=== PATIENT | female | born 1995 | race African-American/Black ===

== ENCOUNTER 2019-04-01 15:39 | Emergency (ER) | payer SELFPAY ==
[2019-04-01 16:18] LABS: APPEARANCE,URINE SLIGHTLY-CLOUDY; BILIRUBIN,URINE NEGATIVE (NEGATIVE); COLOR,URINE AMBER; GLUCOSE, URINE NEGATIVE (NEGATIVE); KETONES,URINE TRACE mg/dL (NEGATIVE); LEUKOCYTE ESTERASE,URINE NEGATIVE (NEGATIVE); NITRITE,URINE NEGATIVE (NEGATIVE); PROTEIN,URINE 30 mg/dL (NEGATIVE); URINE SPECIFIC GRAVITY 1.028
[2019-04-01 16:35] LABS: URINE AMPHETAMINES SCREEN NEGATIVE; URINE BARBITURATES SCREEN NEGATIVE; URINE BENZODIAZEPINES SCREEN NEGATIVE; URINE COCAINE SCREEN NEGATIVE; URINE MARIJUANA (THC) SCREEN NEGATIVE; URINE METHADONE SCREEN NEGATIVE; URINE PHENCYCLIDINE SCREEN NEGATIVE
[2019-04-01 17:06] LABS: ALANINE AMINOTRANSFERASE 18 U/L (9-52); ALBUMIN 4.4 g/dL (3.5-5.0); ALKALINE PHOSPHATASE 64 U/L (38-126); ANION GAP 10 (5-19); ASPARTATE AMINO TRANSFERASE 17 U/L (14-36); BILIRUBIN,DIRECT 0.3 mg/dL (0.0-0.4); BILIRUBIN,TOTAL 0.5 mg/dL (0.2-1.3); BLOOD UREA NITROGEN 10 mg/dL (7-20); CALCIUM 9.9 mg/dL (8.4-10.2); CARBON DIOXIDE 25 mmol/L (22-30); CHLORIDE 108 mmol/L (98-107); GLUCOSE 90 mg/dL (75-110); SODIUM 143.1 mmol/L (137-145); TOTAL PROTEIN 7.5 g/dL (6.3-8.2)
[2019-04-01 17:07] LABS: ACETAMINOPHEN < 10 ug/mL (10-30); ALCOHOL < 10 mg/dL (NONE DETECTED); SALICYLATE < 1.0 mg/dL (2.0-20.0)
--- NOTE | 2019-04-01 17:07 | ER Document Report ---
Addendum entered and electronically signed by RUPINDER BRADLEY MD 04/02/19 13:01: Discharge - Discharge Clinical Impression: suicidal comment Condition: Stable Disposition: HOME, SELF-CARE Additional Instructions: You have been evaluated both medical and behavioral health teams and have been deemed appropriate for discharge. You have identified wanting to get back on the bus to go back home to [place]. You are encouraged to use positive coping skills rather than making suicidal comments (which you identify as false stat ements) when angry. AT ANY TIME, IF YOUR SYMPTOMS CHANGE SIGNIFICANTLY OR WORSEN OR YOU DEVELOP NEW SYMPTOMS, RETURN TO THE EMERGENCY DEPARTMENT IMMEDIATELY FOR RE-EVALUATION. Original Note: ED Psych Disorder / Suicide <SHEYLA FERRER - Last Filed: 04/01/19 19:56> <KACIE CARBAJAL - Last Filed: 04/02/19 12:54> <RUPINDER BRADLEY - Last Filed: 04/02/19 13:00> - General Chief Complaint: Psych Problem Stated Complaint: PSYCH Time Seen by Provider: 04/01/19 16:14 Notes: Patient brought in by EMS for reportedly having suicidal thoughts. Patient was at the main gait to [place] and supposedly said that she wanted to kill herself. Patient says that she is visiting here from [place] and only knows 1 person here, a friend of hers. She thinks that may be someone saw her near the railing to a bridge and thought she might jump. Patient says she was merely taking pictures. She says that she knows someone named Soto here in town. Has not been sick in any way recently. No history of any medical problems. Specifically, patient says she has no history of any mental illnesses. On no medications. (SHEYLA FERRER) Past Medical History - Social History Smoking Status: Unknown if Ever Smoked Family History: Reviewed & Not Pertinent Patient has suicidal ideation: No Patient has homicidal ideation: No <SHEYLA FERRER - Last Filed: 04/01/19 19:56> Review of Systems <SHEYLA FERRER - Last Filed: 04/01/19 19:56> - Review of Systems Notes: CONSTITUTIONAL : Denies fever. CARDIOVASCULAR: Denies chest pain. RESPIRATORY: Denies cough, chest congestion, or shortness of breath. GASTROINTESTINAL: Denies abdominal pain or nausea, vomiting, or diarrhea. GENITOURINARY: Denies difficulty or painful urinating, urinary frequency, blood in urine. (SHEYLA FERRER) Physical Exam <SHEYLA FERRER - Last Filed: 04/01/19 19:56> - Vital signs Vitals: Temp Pulse Resp BP Pulse Ox 97.9 F 88 16 126/80 H 97 04/02/19 05:00 04/02/19 05:00 04/02/19 05:00 04/02/19 05:00 04/02/19 05:00 Notes: PHYSICAL EXAMINATION: GENERAL: Well-appearing, no acute distress. HEAD: Atraumatic, normocephalic. NECK: Normal range of motion, supple. LUNGS: Breath sounds clear and equal bilaterally. HEART: Regular rate and rhythm without murmurs heard. ABDOMEN: Soft, nontender. No guarding or rebound or masses felt. (SHEYLA FERRER) Course - Laboratory Result Diagrams: 04/01/19 17:17 04/01/19 16:30 <SHEYLA FERRER - Last Filed: 04/01/19 19:56> - Laboratory Result Diagrams: 04/01/19 17:17 04/01/19 16:30 <KACIE CARBAJAL - Last Filed: 04/02/19 12:54> - Laboratory Result Diagrams: 04/01/19 17:17 04/01/19 16:30 <RUPINDER BRADLEY - Last Filed: 04/02/19 13:00> - Re-evaluation Re-evalutation: 04/01/19 17:02 Patient will be evaluated by mental health. (SHEYLA FERRER) - Vital Signs Vital signs: Temp Pulse Resp BP Pulse Ox 97.9 F 88 16 126/80 H 97 04/02/19 05:00 04/02/19 05:00 04/02/19 05:00 04/02/19 05:00 04/02/19 05:00 - Laboratory Laboratory results interpreted by ut: 04/01/19 04/01/19 15:45 16:30 Chloride 108 H Urine Protein 30 H Urine Ketones TRACE H Urine Blood SMALL H Urine Urobilinogen 2.0 H Urine Ascorbic Acid 40 H Salicylates < 1.0 L Acetaminophen < 10 L Discharge <SHEYLA FERRER - Last Filed: 04/01/19 19:56> <KACIE CARBAJAL - Last Filed: 04/02/19 12:54> <RUPINDER BRADLEY - Last Filed: 04/02/19 13:00> - Discharge Clinical Impression: suicidal comment Condition: Stable Disposition: HOME, SELF-CARE Additional Instructions: You have been evaluated both medical and behavioral health teams and have been deemed appropriate for discharge. You have identified wanting to get back on the bus to go back home to [place]. You are encouraged to use positive coping skills rather than making suicidal comments (which you identify as false stateme nts) when angry. AT ANY TIME, IF YOUR SYMPTOMS CHANGE SIGNIFICANTLY OR WORSEN OR YOU DEVELOP NEW SYMPTOMS, RETURN TO THE EMERGENCY DEPARTMENT IMMEDIATELY FOR RE-EVALUATION.
[2019-04-01 17:30] LABS: ABSOLUTE BASOPHILS # (AUTO) 0.1 10^3/uL (0.0-0.2); ABSOLUTE LYMPHOCYTES (AUTO) 1.6 10^3/uL (0.5-4.7); ABSOLUTE MONOCYTES (AUTO) 0.6 10^3/uL (0.1-1.4); ABSOLUTE NEUT (AUTO) 7.1 10^3/uL (1.7-8.2); BASOPHILS % (AUTO) 1.1 % (0-2); EOSINOPHILS % (AUTO) 0.4 % (0-6); HEMATOCRIT 36.6 % (36.0-47.0); HEMOGLOBIN 12.2 g/dL (12.0-15.5); LYMPHOCYTES % (AUTO) 17.1 % (13-45); MEAN CORPUSCULAR HGB CONC 33.4 g/dL (32.0-36.0); MEAN CORPUSCULAR VOLUME 84 fl (80-97); MONOCYTES % (AUTO) 6.8 % (3-13); PLATELET COUNT 338 10^3/uL (150-450); RED BLOOD COUNT 4.36 10^6/uL (3.72-5.28); RED CELL DISTRIBUTION WIDTH 13.9 % (11.5-14.0); SEGMENTED NEUTROPHILS % (AUTO) 74.6 % (42-78); TOTAL CELLS COUNTED % (AUTO) 100 %; WHITE BLOOD COUNT 9.5 10^3/uL (4.0-10.5)
--- NOTE | 2019-04-01 17:39 | PSYCHOLOGICAL NOTE ---
Psych Note - Psych Note Date seen by psych provider: 04/01/19 Psych Note: Patient brought in by EMS for reportedly having suicidal thoughts. Patient was at the main gait to [place] and supposedly said that she wanted to kill herself. Behavioral health team contacted patient's "friend" Soto. Impression\\plan: Patient is recommended for IVC petition for overnight mental health observation. Patient reportedly disclosed suicidal ideation with plan of jumping from a bridge to her friend and then PMO upon her very initial arrival. Patient is currently denying and minimizing. There is significant concern that the patient drove down from [place] with no planning or notifying a person she just met. They identify concerning behaviors stating "I think she is mentally unstable." Patient be reevaluated. Dr. Marinelli was consulted to care management of this patient; attending physicians in agreement with recommendations and disposition.
--- NOTE | 2019-04-01 18:47 | EKG REPORT ---
SEVERITY:- OTHERWISE NORMAL ECG - SINUS ARRHYTHMIA, RATE 60-82 : Confirmed by: Jose Diallo MD 01-Apr-2019 18:47:04
[2019-04-01] MEDS ORDERED: ACETAMINOPHEN 325 MG TABLET PO ONE (21:10)
[2019-04-02 13:13] VITALS: BP 136/87
== END 2019-04-02 13:17 | disposition home or self-care (01) ==
LOC: ER 15:39
DX: R45.851 Suicidal ideations (principal)
CPT/HCPCS: 36415; 80053; 80307; 81001; 85025; 93005; 93010; 99285

== ENCOUNTER 2019-04-14 18:44 | Emergency (ER) | payer SELFPAY ==
[2019-04-14 19:18] VITALS: BP 115/69
[2019-04-14] MEDS ORDERED: ACETAMINOPHEN 325 MG TABLET PO ONE (22:04)
--- NOTE | 2019-04-14 23:05 | ER Document Report ---
HPI - HPI Patient complains to provider of: right ankle pain Time Seen by Provider: 04/14/19 22:03 Pain Level: 2 Context: Patient is a 24-year-old female presents to the emergency department for pain in her right ankle. Patient states she tripped prior to arrival to the emergency room. Patient is unsure if she inverted or everted her right ankle. Patient is complaining of generalized pain to the lateral malleolus of her right ankle. Denies pain in her right hip, right knee, right foot. Patient denies any other injuries to include hitting her head, neck, back, loss of consciousness or vomiting. - REPRODUCTIVE Reproductive: DENIES: : Past Medical History - General Information source: Patient - Social History Smoking Status: Unknown if Ever Smoked Family History: Reviewed & Not Pertinent Renal/ Medical History: Denies: Hx Peritoneal Dialysis Vertical Provider Document - CONSTITUTIONAL Agree With Documented VS: Yes Notes: GENERAL: Alert, interacts well. No acute distress. HEAD: Normocephalic, atraumatic. EYES: Pupils equal, round, and reactive to light. Extraocular movements intact. ENT: Oral mucosa moist, tongue midline. NECK: Full range of motion. Supple. Trachea midline. LUNGS: Clear to auscultation bilaterally, no wheezes, rales, or rhonchi. No respiratory distress. HEART: Regular rate and rhythm. No murmur ABDOMEN: Soft, non-tender. Non-distended. Bowel sounds present in all 4 quadrants. EXTREMITIES: Moves all 4 extremities spontaneously. No edema, normal radial and dorsalis pedis pulses bilaterally. No cyanosis. Patient is complaining of pain right lateral malleolus. No outward signs of trauma noted, no erythema, ecchymosis, swelling. Full range of motion right hip, right knee, right ankle. BACK: no cervical, thoracic, lumbar midline tenderness. No saddle anesthesia, normal distal neurovascular exam. NEUROLOGICAL: Alert and oriented x3. Normal speech. cranial nerves II through XII grossly intact PSYCH: Flat affect, normal mood. SKIN: Warm, dry, normal turgor. No rashes or lesions noted. - INFECTION CONTROL TRAVEL OUTSIDE OF THE [place] IN LAST 30 DAYS: No Course - Re-evaluation Re-evalutation: 04/14/19 23:08 Ankle X-Ray 04/14/19 22:04 IMPRESSION: 1. No acute fracture or dislocation. copyright 2010 [employer]- All Rights Reserved Discussed negative x-ray results, use of ankle stirrup and crutches. Discussed [id number] Tylenol Motrin for generalized ice. Discussed close follow-up with primary care provider and orthopedics as needed. Patient stable for discharge. - Vital Signs Vital signs: Temp Pulse Resp BP Pulse Ox 98.3 F 77 18 115/69 99 04/14/19 19:17 04/14/19 19:17 04/14/19 19:17 04/14/19 19:17 04/14/19 19:17 Discharge - Discharge Clinical Impression: Right ankle injury Qualifiers: Encounter type: initial encounter Qualified Code(s): S99.911A - Unspecified injury of right ankle, initial encounter Condition: Stable Disposition: HOME, SELF-CARE Instructions: Ankle Stirrup Splint ([facility]), Sprained Ankle ([facility]), Ankle Exercise Program ([facility]) Additional Instructions: As we discussed you have been seen and treated in the emergency department for an injury to your right ankle. Your x-rays revealed no signs of fractures. Please make sure you are using ankle stirrup brace and crutches as we have discussed. Please take [id number] Tylenol or Motrin for generalized pain. Please also follow-up with your primary care provider in the next 24 to 48 hours. Please return to the emergency room for any concerns. Phone numbers for orthopedics will also be provided in this packet should you need them. Referrals: JOSE TAFOYA MD [ACTIVE STAFF] - Follow up as needed
--- NOTE | 2019-04-14 23:05 | RADIOLOGY REPORT (SQ) ---
EXAM DESCRIPTION: XR ANKLE 3 OR MORE VIEWS COMPLETED DATE/TME: 04/14/2019 22:04 CLINICAL HISTORY: 24 years, Female, pain COMPARISON: None. FINDINGS: 3 views of the right ankle. No acute fracture or dislocation. Normal osseous mineralization. Tibial plafond and talar dome have appropriate alignment. Base of the fifth metatarsal is intact. IMPRESSION: 1. No acute fracture or dislocation. copyright 2010 [employer]- All Rights Reserved
== END 2019-04-14 23:59 | disposition home or self-care (01) ==
LOC: ER 18:44
DX: S99.911A Unspecified injury of right ankle, initial encounter (principal); W18.40XA Slipping, tripping and stumbling without falling, unspecified, initial encounter
CPT/HCPCS: 99283; 73610; L1902